=== PATIENT | male | born 1945 | race Caucasian/White ===

== ENCOUNTER → 2018-08-24 | Outpatient (CLI) | payer OTHER | END | disposition home or self-care (01) | LOC: CARD 12:15 | PROVIDERS: ATTEND Nurse Practitioner Acute Care | DX: F03.91 Unspecified dementia, unspecified severity, with behavioral disturbance (principal); I12.9 Hypertensive chronic kidney disease with stage 1 through stage 4 chronic kidney disease, or unspecified chronic kidney disease; E11.22 Type 2 diabetes mellitus with diabetic chronic kidney disease; N18.9 Chronic kidney disease, unspecified; E03.9 Hypothyroidism, unspecified; E55.9 Vitamin D deficiency, unspecified; E78.5 Hyperlipidemia, unspecified; Z86.31 Personal history of diabetic foot ulcer; Z72.0 Tobacco use; Z89.419 Acquired absence of unspecified great toe | CPT/HCPCS: 95819 ==

== ENCOUNTER 2019-09-09 09:20 | Inpatient (IN) | payer OTHER ==
[~2019-09-09] VITALS: Ht 180.3 cm; Wt 60.5 kg
[2019-09-09] MEDS ORDERED: SODIUM CHLORIDE 0.9% 1,000 ML IV ONE (09:40)
--- NOTE | 2019-09-09 09:44 | NUR ---
PT CLYDE PADILLA, initial EMS call for hypothermia & AMS, pt was found outside his house crawling on the ground by neighbors who called EMS, pt was normothermic upon arrival to ED, Pt is A&O x 1, presummed to have dementia. Pt reports no medical complaints at this time, pt is unable to report medical history beyond DM or what events lead up to EMS being called. Pt has what appears to be a chronic would on anterior distal foot which was dressed upon arrival, dressing was clean & intact. Pt is unable to report how long wound or dressing has been in place. Pt MANDEEPEE, PERRL & responding to questions appropriately.
[2019-09-09] MEDS ORDERED: PLEASE ENTER ALLERGIES MC SCH (10:00)
[2019-09-09 10:30] LABS: BASOPHILS # (AUTO) 0.03 x10^3/uL (0-0.1); BASOPHILS % (AUTO) 0 % (0-1); EOSINOPHILS # (AUTO) 0.13 x10^3/uL (0-0.4); EOSINOPHILS % (AUTO) 1 % (1-7); LYMPHOCYTES % (AUTO) 14 % (22-44); MD NO; MEAN CORPUSCULAR HEMOGLOBIN 30.7 pg (27.5-34.5); MEAN CORPUSCULAR HGB CONC 33.2 g/dL (33.2-36.2); MEAN CORPUSCULAR VOLUME 92.5 fL (81-97); MEAN PLATELET VOLUME 7.3 fL (7.4-10.4); MONOCYTES # (AUTO) 0.48 x10^3/uL (0.2-0.8); MONOCYTES % (AUTO) 5 % (2-9); NEUTROPHILS # (AUTO) 8.12 x10^3/uL (1.8-6.8); NEUTROPHILS % (AUTO) 80 % (42-75); PLATELET COUNT 366 x10^3/uL (130-400); RED BLOOD COUNT 3.43 x10^6/uL (4.38-5.82); RED CELL DISTRIBUTION WIDTH 14.9 % (9.4-14.8)
[2019-09-09 10:35] LABS: ALBUMIN 3.2 g/dL (3.4-5.0); ANION GAP 11 mmol/L (5-15); CALCIUM 7.9 mg/dL (8.5-10.1); CHLORIDE 112 mmol/L (98-107)
[2019-09-09 10:40] LABS: ALANINE AMINOTRANSFERASE 21 U/L (12-78); ALKALINE PHOSPHATASE 127 U/L (45-117); BILIRUBIN,TOTAL 0.4 mg/dL (0.2-1.0); CREATININE 2.06 mg/dL (0.7-1.3); TOTAL PROTEIN 7.3 g/dL (6.4-8.2)
--- NOTE | 2019-09-09 11:39 | NUR ---
pt resting in [facility], denies additional needs at this time, call light within reach, NAD, WCTM.
[2019-09-09 12:13] LABS: MICROSCOPIC NOT IND
[2019-09-09 12:18] LABS: CULTURE INDICATED? NO
--- NOTE | 2019-09-09 12:32 | NUR ---
Pt resting in [facility], denies additional needs at this time, call light within reach. report given to Tiffany RN over the phone, pt RTG will continue to monitor until transferred.
[2019-09-09 14:00] VITALS: BP 170/79
[2019-09-09] MEDS ORDERED: LABETALOL 5MG/ML, 20ML IVPush PRN (14:00)
[2019-09-09] MEDS ORDERED: ONDANSETRON 2MG/ML, 2ML IVPush PRN (14:00)
[2019-09-09] MEDS ORDERED: hydrALAzine 20 MG/ML, 1ML IVPush PRN (14:00)
[2019-09-09] MEDS ORDERED: ACETAMINOPHEN 325 MG TABLET PO PRN (14:00)
[2019-09-09] MEDS: AMLODIPINE 10 MG TAB PO SCH (14:05)
[2019-09-09] MEDS ORDERED: INSU100V8 SQ (14:36)
[2019-09-09] MEDS: INSULIN LISPRO 100 UNITS/ML, PEN SQ-INSULIN SCH ×2 (16:00→21:56)
[2019-09-09] MEDS: SODIUM CHLORIDE 0.9% 1,000 ML IV SCH (17:15)
[2019-09-09 19:00] VITALS: BP 98/60
[2019-09-09] MEDS: INSULIN GLARGINE 100 UNITS/ML, PEN SQ-INSULIN SCH (21:56)
[2019-09-10 00:38] VITALS: BP 96/54
[2019-09-10] MEDS: SODIUM CHLORIDE 0.9% 1,000 ML IV SCH ×3 (02:45→23:18)
[2019-09-10] MEDS: INSULIN LISPRO 100 UNITS/ML, PEN SQ-INSULIN SCH ×4 (06:26→20:40)
[2019-09-10 07:18] VITALS: BP 104/58
[2019-09-10 07:38] LABS: BASOPHILS # (AUTO) 0.07 x10^3/uL (0-0.1); BASOPHILS % (AUTO) 1 % (0-1); EOSINOPHILS # (AUTO) 0.12 x10^3/uL (0-0.4); EOSINOPHILS % (AUTO) 1 % (1-7); LYMPHOCYTES % (AUTO) 22 % (22-44); MD NO; MEAN CORPUSCULAR HEMOGLOBIN 30.8 pg (27.5-34.5); MEAN CORPUSCULAR HGB CONC 33.3 g/dL (33.2-36.2); MEAN CORPUSCULAR VOLUME 92.4 fL (81-97); MEAN PLATELET VOLUME 7.2 fL (7.4-10.4); MONOCYTES # (AUTO) 0.53 x10^3/uL (0.2-0.8); MONOCYTES % (AUTO) 6 % (2-9); NEUTROPHILS # (AUTO) 5.67 x10^3/uL (1.8-6.8); NEUTROPHILS % (AUTO) 69 % (42-75); PLATELET COUNT 348 x10^3/uL (130-400); RED CELL DISTRIBUTION WIDTH 15.1 % (9.4-14.8)
[2019-09-10 07:46] LABS: ANION GAP 8 mmol/L (5-15); CALCIUM 7.9 mg/dL (8.5-10.1); CHLORIDE 117 mmol/L (98-107); CREATININE 2.07 mg/dL (0.7-1.3)
[2019-09-10] MEDS: AMLODIPINE 10 MG TAB PO SCH (07:50)
[2019-09-10] MEDS ORDERED: GADOTERATE 7.5 MMOL/15 ML SYR ONE (08:18)
[2019-09-10 12:23] VITALS: BP 124/60
[2019-09-10 20:00] VITALS: BP 102/50
[2019-09-10] MEDS: INSULIN GLARGINE 100 UNITS/ML, PEN SQ-INSULIN SCH (20:40)
[2019-09-11 02:40] VITALS: BP 126/50
[2019-09-11 06:52] LABS: BASOPHILS # (AUTO) 0.07 x10^3/uL (0-0.1); BASOPHILS % (AUTO) 1 % (0-1); EOSINOPHILS # (AUTO) 0.21 x10^3/uL (0-0.4); EOSINOPHILS % (AUTO) 3 % (1-7); LYMPHOCYTES # (AUTO) 1.79 x10^3/uL (1-3.4); LYMPHOCYTES % (AUTO) 23 % (22-44); MD NO; MEAN CORPUSCULAR HEMOGLOBIN 30.5 pg (27.5-34.5); MEAN CORPUSCULAR VOLUME 92.4 fL (81-97); MEAN PLATELET VOLUME 7.6 fL (7.4-10.4); MONOCYTES # (AUTO) 0.62 x10^3/uL (0.2-0.8); MONOCYTES % (AUTO) 8 % (2-9); NEUTROPHILS # (AUTO) 5.14 x10^3/uL (1.8-6.8); NEUTROPHILS % (AUTO) 66 % (42-75); PLATELET COUNT 322 x10^3/uL (130-400); RED CELL DISTRIBUTION WIDTH 15.1 % (9.4-14.8)
[2019-09-11] MEDS: INSULIN LISPRO 100 UNITS/ML, PEN SQ-INSULIN SCH ×4 (07:00→21:26)
[2019-09-11 07:03] LABS: ANION GAP 7 mmol/L (5-15); CALCIUM 7.7 mg/dL (8.5-10.1); CHLORIDE 120 mmol/L (98-107)
[2019-09-11 07:04] LABS: CREATININE 1.67 mg/dL (0.7-1.3)
[2019-09-11] MEDS: SODIUM CHLORIDE 0.9% 1,000 ML IV SCH ×2 (09:10→19:51)
[2019-09-11] MEDS: AMLODIPINE 10 MG TAB PO SCH (09:10)
[2019-09-11 10:14] VITALS: BP 119/50
[2019-09-11 14:02] VITALS: BP 120/53
[2019-09-11 19:27] VITALS: BP 98/53
[2019-09-11] MEDS: INSULIN GLARGINE 100 UNITS/ML, PEN SQ-INSULIN SCH (21:25)
[2019-09-12 01:13] VITALS: BP 107/50
[2019-09-12 06:26] LABS: ANION GAP 7 mmol/L (5-15); CALCIUM 7.7 mg/dL (8.5-10.1); CHLORIDE 117 mmol/L (98-107)
[2019-09-12 06:28] LABS: CREATININE 1.74 mg/dL (0.7-1.3)
[2019-09-12] MEDS: INSULIN LISPRO 100 UNITS/ML, PEN SQ-INSULIN SCH ×4 (07:00→21:47)
[2019-09-12 07:01] VITALS: BP 134/58
[2019-09-12] MEDS: AMLODIPINE 10 MG TAB PO SCH (11:43)
[2019-09-12] MEDS: SODIUM CHLORIDE 0.9% 1,000 ML IV SCH ×2 (11:44→21:45)
[2019-09-12 14:34] VITALS: BP 110/58
[2019-09-12 19:33] VITALS: BP 116/65
[2019-09-12] MEDS: INSULIN GLARGINE 100 UNITS/ML, PEN SQ-INSULIN SCH (21:48)
[2019-09-13 02:30] VITALS: BP 122/66
[2019-09-13 05:51] LABS: BASOPHILS # (AUTO) 0.04 x10^3/uL (0-0.1); BASOPHILS % (AUTO) 0 % (0-1); EOSINOPHILS # (AUTO) 0.18 x10^3/uL (0-0.4); EOSINOPHILS % (AUTO) 2 % (1-7); LYMPHOCYTES # (AUTO) 1.62 x10^3/uL (1-3.4); LYMPHOCYTES % (AUTO) 17 % (22-44); MD NO; MEAN CORPUSCULAR HEMOGLOBIN 30.6 pg (27.5-34.5); MEAN CORPUSCULAR HGB CONC 32.7 g/dL (33.2-36.2); MEAN CORPUSCULAR VOLUME 93.6 fL (81-97); MEAN PLATELET VOLUME 7.4 fL (7.4-10.4); MONOCYTES # (AUTO) 0.62 x10^3/uL (0.2-0.8); MONOCYTES % (AUTO) 7 % (2-9); NEUTROPHILS # (AUTO) 7.04 x10^3/uL (1.8-6.8); NEUTROPHILS % (AUTO) 74 % (42-75); PLATELET COUNT 301 x10^3/uL (130-400); RED BLOOD COUNT 2.75 x10^6/uL (4.38-5.82); RED CELL DISTRIBUTION WIDTH 14.9 % (9.4-14.8)
[2019-09-13 05:55] LABS: ANION GAP 8 mmol/L (5-15); CALCIUM 7.7 mg/dL (8.5-10.1); CHLORIDE 118 mmol/L (98-107)
[2019-09-13 05:56] LABS: CREATININE 1.69 mg/dL (0.7-1.3)
[2019-09-13] MEDS: INSULIN LISPRO 100 UNITS/ML, PEN SQ-INSULIN SCH ×4 (07:00→21:26)
[2019-09-13] MEDS: SODIUM CHLORIDE 0.9% 1,000 ML IV SCH ×2 (07:35→17:39)
[2019-09-13 10:17] VITALS: BP 165/57
[2019-09-13] MEDS: AMLODIPINE 10 MG TAB PO SCH (10:22)
[2019-09-13] MEDS ORDERED: INSULIN LISPRO 100 UNITS/ML, PEN SQ-INSULIN ONE (16:00)
[2019-09-13 16:23] VITALS: BP 115/56
[2019-09-13 20:52] VITALS: BP 128/54
[2019-09-13] MEDS: INSULIN GLARGINE 100 UNITS/ML, PEN SQ-INSULIN SCH (21:27)
[2019-09-14 00:32] VITALS: BP 144/56
[2019-09-14] MEDS: SODIUM CHLORIDE 0.9% 1,000 ML IV SCH (05:40)
[2019-09-14 06:19] LABS: BASOPHILS # (AUTO) 0.04 x10^3/uL (0-0.1); BASOPHILS % (AUTO) 0 % (0-1); EOSINOPHILS # (AUTO) 0.15 x10^3/uL (0-0.4); EOSINOPHILS % (AUTO) 1 % (1-7); LYMPHOCYTES % (AUTO) 15 % (22-44); MD NO; MEAN CORPUSCULAR HEMOGLOBIN 30.5 pg (27.5-34.5); MEAN CORPUSCULAR HGB CONC 32.9 g/dL (33.2-36.2); MEAN CORPUSCULAR VOLUME 92.8 fL (81-97); MONOCYTES # (AUTO) 0.62 x10^3/uL (0.2-0.8); MONOCYTES % (AUTO) 6 % (2-9); NEUTROPHILS # (AUTO) 8.02 x10^3/uL (1.8-6.8); NEUTROPHILS % (AUTO) 77 % (42-75); PLATELET COUNT 311 x10^3/uL (130-400); RED BLOOD COUNT 2.85 x10^6/uL (4.38-5.82); RED CELL DISTRIBUTION WIDTH 14.9 % (9.4-14.8)
[2019-09-14 06:29] LABS: ANION GAP 7 mmol/L (5-15); CALCIUM 7.6 mg/dL (8.5-10.1); CHLORIDE 116 mmol/L (98-107); CREATININE 1.89 mg/dL (0.7-1.3)
[2019-09-14 07:55] VITALS: BP 113/47
[2019-09-14] MEDS: AMLODIPINE 10 MG TAB PO SCH (09:39)
[2019-09-14] MEDS: INSULIN LISPRO 100 UNITS/ML, PEN SQ-INSULIN SCH ×4 (09:39→21:09)
[2019-09-14 13:57] VITALS: BP 114/61
[2019-09-14] MEDS ORDERED: INSULIN GLARGINE 100 UNITS/ML, PEN SQ-INSULIN SCH (21:00)
[2019-09-14 21:12] VITALS: BP 148/68
[2019-09-15 01:55] VITALS: BP 129/58
[2019-09-15 03:43] LABS: BASOPHILS # (AUTO) 0.04 x10^3/uL (0-0.1); BASOPHILS % (AUTO) 0 % (0-1); EOSINOPHILS # (AUTO) 0.15 x10^3/uL (0-0.4); EOSINOPHILS % (AUTO) 1 % (1-7); LYMPHOCYTES # (AUTO) 1.39 x10^3/uL (1-3.4); LYMPHOCYTES % (AUTO) 12 % (22-44); MD NO; MEAN CORPUSCULAR HEMOGLOBIN 30.7 pg (27.5-34.5); MEAN CORPUSCULAR HGB CONC 33.1 g/dL (33.2-36.2); MEAN CORPUSCULAR VOLUME 92.7 fL (81-97); MEAN PLATELET VOLUME 8.3 fL (7.4-10.4); MONOCYTES # (AUTO) 0.79 x10^3/uL (0.2-0.8); MONOCYTES % (AUTO) 7 % (2-9); NEUTROPHILS # (AUTO) 9.02 x10^3/uL (1.8-6.8); NEUTROPHILS % (AUTO) 79 % (42-75); PLATELET COUNT 302 x10^3/uL (130-400); RED BLOOD COUNT 2.69 x10^6/uL (4.38-5.82); RED CELL DISTRIBUTION WIDTH 14.7 % (9.4-14.8)
[2019-09-15 03:44] LABS: ANION GAP 9 mmol/L (5-15); CALCIUM 7.7 mg/dL (8.5-10.1); CHLORIDE 114 mmol/L (98-107); CREATININE 1.71 mg/dL (0.7-1.3)
[2019-09-15 08:49] VITALS: BP 145/66
[2019-09-15] MEDS: AMLODIPINE 10 MG TAB PO SCH (09:32)
[2019-09-15] MEDS: INSULIN LISPRO 100 UNITS/ML, PEN SQ-INSULIN SCH ×4 (09:35→21:46)
[2019-09-15 13:31] VITALS: BP 130/58
[2019-09-15 18:43] VITALS: BP 113/57
[2019-09-15] MEDS ORDERED: INSULIN GLARGINE 100 UNITS/ML, PEN SQ-INSULIN SCH (21:00)
[2019-09-15] MEDS ORDERED: SODIUM CHLORIDE 0.9% 1,000 ML IV ONE (21:30)
[2019-09-16 00:14] VITALS: BP 138/62
[2019-09-16 05:43] LABS: CHLORIDE 112 mmol/L (98-107)
[2019-09-16 05:48] LABS: ANION GAP 9 mmol/L (5-15); CALCIUM 7.9 mg/dL (8.5-10.1); CREATININE 1.86 mg/dL (0.7-1.3)
[2019-09-16] MEDS: AMLODIPINE 10 MG TAB PO SCH (08:22)
[2019-09-16] MEDS: INSULIN LISPRO 100 UNITS/ML, PEN SQ-INSULIN SCH ×4 (08:37→22:14)
[2019-09-16 08:42] VITALS: BP 150/72
[2019-09-16 14:46] LABS: ACETONE, SERUM Trace (Negative)
[2019-09-16 15:12] VITALS: BP 136/66
[2019-09-16] MEDS ORDERED: INSULIN GLARGINE 100 UNITS/ML, PEN SQ-INSULIN SCH (21:00)
[2019-09-16 21:27] VITALS: BP 119/49
[2019-09-17 02:50] VITALS: BP 118/63
[2019-09-17 03:34] LABS: BASOPHILS # (AUTO) 0.05 x10^3/uL (0-0.1); BASOPHILS % (AUTO) 0 % (0-1); EOSINOPHILS # (AUTO) 0.31 x10^3/uL (0-0.4); EOSINOPHILS % (AUTO) 3 % (1-7); LYMPHOCYTES # (AUTO) 1.69 x10^3/uL (1-3.4); LYMPHOCYTES % (AUTO) 15 % (22-44); MD NO; MEAN CORPUSCULAR HEMOGLOBIN 31.5 pg (27.5-34.5); MEAN CORPUSCULAR VOLUME 92.5 fL (81-97); MEAN PLATELET VOLUME 7.9 fL (7.4-10.4); MONOCYTES # (AUTO) 0.95 x10^3/uL (0.2-0.8); MONOCYTES % (AUTO) 8 % (2-9); NEUTROPHILS # (AUTO) 8.48 x10^3/uL (1.8-6.8); NEUTROPHILS % (AUTO) 74 % (42-75); PLATELET COUNT 333 x10^3/uL (130-400); RED BLOOD COUNT 2.71 x10^6/uL (4.38-5.82); RED CELL DISTRIBUTION WIDTH 14.5 % (9.4-14.8)
[2019-09-17 03:51] LABS: ANION GAP 6 mmol/L (5-15); CHLORIDE 113 mmol/L (98-107); CREATININE 1.82 mg/dL (0.7-1.3)
[2019-09-17] MEDS: INSULIN LISPRO 100 UNITS/ML, PEN SQ-INSULIN SCH ×3 (07:00→16:33)
[2019-09-17] MEDS: AMLODIPINE 10 MG TAB PO SCH (08:35)
[2019-09-17 08:54] VITALS: BP 146/66
[2019-09-17 14:14] VITALS: BP 99/55
[2019-09-17 18:48] VITALS: BP 112/62
== END 2019-09-17 19:49 | disposition home or self-care (01) | DRG 682 ==
LOC: SUATTDRO 12:47 → ED 13:15 → 4NE 13:30 → 3N 09-10 14:30
PROVIDERS: ADMIT Internal Medicine; ATTEND Family Medicine
DX: N17.0 Acute kidney failure with tubular necrosis (principal); E43 Unspecified severe protein-calorie malnutrition; G93.41 Metabolic encephalopathy; Z68.1 Body mass index [BMI] 19.9 or less, adult; E86.0 Dehydration; E11.22 Type 2 diabetes mellitus with diabetic chronic kidney disease; I12.9 Hypertensive chronic kidney disease with stage 1 through stage 4 chronic kidney disease, or unspecified chronic kidney disease; N18.9 Chronic kidney disease, unspecified; F03.90 Unspecified dementia, unspecified severity, without behavioral disturbance, psychotic disturbance, mood disturbance, and anxiety; E11.9 Type 2 diabetes mellitus without complications
CPT/HCPCS: 36415; 70450; 70553; 80048; 80053; 81003; 82010; 82140; 82607; 82947; 82962; 83036; 84443; 85025; 93005; 99285; G0378; A9575; J1815; J7030